=== PATIENT | male | born 1970 | race Hispanic/Latino ===

== ENCOUNTER 2020-05-04 18:29 | Emergency (ER) | payer SELFPAY ==
--- NOTE | 2020-05-04 18:53 | EDPHYS ---
Physician Documentation [facility] Name: Daniel Mancera Age: 50 yrs Sex: Male : 1970 Arrival Date: 05/04/2020 Time: 18:31 Bed 2 Private MD: ED Physician Gerry Alas HPI: 05/04 18:47 This 50 yrs old Male presents to ER via Unassigned with complaints of cpr in [facility] progress. 18:47 Preceding the arrest, the patient collapsed, had chest pain. The arrest occurred at [facility] home. Pre-hospital course: The arrest was witnessed Bystanders at the scene did not perform CPR. The patient has not experienced similar symptoms in the past. Historical: - Allergies: 19:09 No Known Allergies; sv - PMHx: 19:09 None; sv - Family history:: not pertinent. ROS: 18:48 Unable to obtain ROS due to cpr, chest pain x days , taking aspirin. chris Exam: 18:48 Eyes: Pupils: are fixed and dilated. chris 18:48 Neck: External neck: is normal, no jvd. 18:48 Chest/axilla: Inspection: normal. 18:48 Cardiovascular: Rate: actual rate is 0 bpm, JVD: is not appreciated. 18:48 Respiratory: Breath sounds: bronchial sounds, rhonchi, that are mild, with ambubag, Respiratory rate: zero Procedures: 19:30 Intubation: Ventilated with 100% NRB prior to procedure. Intubated orally using # 4 chris Carroll blade with 7.5 mm ETT. was successful on first attempt. Ventilated with Ambu bag. Tube secured Patient tolerated well. Central Line: the site was prepped with Betadine, in sterile fashion, a triple lumen catheter was inserted, in the right in 1 attempts. placement was verified, by blood return, the site was dressed with using sterile technique, the patient tolerated the procedure, well. MDM: 18:47 Patient medically screened. [facility] 18:48 Differential diagnosis: cardiac arrest, respiratory arrest. Data reviewed: vital signs, [facility] nurses notes, EMS record. Data interpreted: front desk monitor: rate is 0 beats/min, Pulse oximetry: on geltube is 100 %. 05/04 18:51 Order name: Finger stick results - FOR PT WITH NO ID [id number] Administered Medications: 18:25 Drug: EPINEPHrine 0.1mg/mL 1:10,000 1 mg {Note: IO to RLE.} Route: IVP; Site: Other; sv 19:18 Follow up: Response: No adverse reaction sv 18:25 Drug: NS 0.9% 1000 ml {Note: IO to RLE.} Route: IV; Rate: 1000 ml; Site: Other; sv 18:44 Follow up: IV Status: Order to discontinue infusion; IV Intake: 700ml sv 18:29 Drug: EPINEPHrine 0.1mg/mL 1:10,000 1 mg {Note: IO to RLE.} Route: IVP; Site: Other; sv 19:17 Follow up: Response: No adverse reaction sv 18:31 Drug: Sodium Bicarbonate 1 amp Route: IVP; Site: right femoral; sv 19:17 Follow up: Response: No adverse reaction sv 18:32 Drug: EPINEPHrine 0.1mg/mL 1:10,000 1 mg Route: IVP; Site: right femoral; sv 19:17 Follow up: Response: No adverse reaction sv 18:35 Drug: EPINEPHrine 0.1mg/mL 1:10,000 1 mg Route: IVP; Site: right femoral; sv 19:17 Follow up: Response: No adverse reaction sv 18:38 Drug: EPINEPHrine 0.1mg/mL 1:10,000 1 mg Route: IVP; Site: right femoral; sv 19:17 Follow up: Response: No adverse reaction sv 18:39 Drug: Sodium Bicarbonate 1 amp Route: IVP; Site: right femoral; sv 19:17 Follow up: Response: No adverse reaction sv 18:40 Drug: EPINEPHrine (PF) 1mg/mL 1:1,000 1 mg Route: IV; Rate: calculated rate; Site: sv right femoral; 18:41 Drug: Calcium Chloride 1 grams Route: IVP; Site: right femoral; sv 19:17 Follow up: Response: No adverse reaction sv 18:43 Drug: EPINEPHrine 0.1mg/mL 1:10,000 1 mg Route: IVP; Site: right femoral; sv 19:17 Follow up: Response: No adverse reaction sv Point of Care Testing: Blood Glucose: 18:37 Blood Glucose: 205 mg/dL; sv Ranges: Critical Glucose Levels:Adult <50 mg/dl or >400 mg/dl <40 mg/dl or >180 mg/dl Disposition: 19:31 Critical Care:. chris Disposition: Patient pronounced on 05/04/20 18:44 by Gerry Alas. Impression: Cardiac arrest, Respiratory arrest, Obesity, unspecified. - Released to [employer]. Critical care time excluding procedures: 19:31 Critical care time: Bedside Care: 30 minutes, Family Intervention: 10 minutes. Total chris time: 40 minutes Signatures: Dispatcher [employer] Bethany Vega RN RN sv Gay, Steven, RN RN sg Anderson, Corey, MD MD chris Corrections: (The following items were deleted from the chart) 21:30 18:53 05/04/2020 18:53 Patient pronounced on 05/04/2020 at 18:44 by Gerry Alas. marva Impression: Cardiac arrest; Respiratory arrest; Obesity, unspecified. Released to [employer]. chris
--- NOTE | 2020-05-04 21:32 | ER ---
Nurse's Notes [facility] Name: Daniel Mancera Age: 50 yrs Sex: Male : 1970 Arrival Date: 05/04/2020 Time: 18:31 Bed 2 Private MD: Diagnosis: Cardiac arrest;Respiratory arrest;Obesity, unspecified Presentation: 05/04 18:24 Chief complaint: EMS states: toned out at 1732 for pt being blue and breathing sv difficulty. [facility] was on scene and had shocked the pt once. EMS arrived at 1746 with CPR being performed by PD. Spouse told EMS that he went down and immediately called 911. He had been c/o CP that radiated to his back for 3 days and had been taking ASA daily since then. EMS gave Epinephrine x 5 en route, pt has been in asystole. Care prior to arrival: Oral intubation, Igel tube CPR performed by EMS and is still in progress. Compressions began prior to arrival. 18:24 Method Of Arrival: EMS: [facility] sv 18:24 Acuity: ERICKA 1 sv 19:25 Coronavirus screen: . Ebola Screen: Unable to complete the Ebola screening sv because: . Onset of symptoms was May 04, 2020. Historical: - Allergies: 19:09 No Known Allergies; sv - PMHx: 19:09 None; sv - Family history:: not pertinent. Screenin:25 Abuse screen: unknown. Nutritional screening: unknown . Tuberculosis screening: unknown sv . Assessment: 18:24 CPR assessment: unresponsive, no respiratory effort, intubated, Ambu ventilation. sv Cardiac rhythm is asystole. General: Behavior is unresponsive. Respiratory: Airway via oral intubation. GI: Abdomen is distended, obese. 18:25 Reassessment: CPR paused, pulse check-asystole. CPR resumed. sv 18:29 Reassessment: CPR paused, pulse check-asystole. CPR resumed. sv 18:30 Reassessment: CPR paused, pulse check-asystole. CPR resumed. sv 18:32 Reassessment: CPR paused, pulse check-asystole. CPR resumed. sv 18:34 Reassessment: CPR paused, pulse check-asystole. CPR resumed. sv 18:36 Reassessment: CPR paused, pulse check-asystole. CPR resumed. sv 18:38 Reassessment: CPR paused, pulse check-asystole. CPR resumed. sv 18:40 Reassessment: CPR paused, pulse check-asystole. CPR resumed. sv 18:42 Reassessment: CPR paused, pulse check-asystole. CPR resumed. sv 18:44 Reassessment: CPR paused, pulse check-asystole. Time of pronounced by Dr Alas.sv 19:05 Reassessment: Dr. Alas spoke to pt's Teresa Mancera and notified of . . aa5 19:19 Reassessment: Pt's personal valuables inventoried by me and MONICA Flores (see pt's aa5 chart), they include: pants and shirts (cut by ER staff), cowboy boots, black watch, and silver colored wedding band. . 19:30 Reassessment: [facility] called by Sandra ANDERSON. sv 19:35 Reassessment: Case #[id number] from [facility]. ED Course: 18:26 Assisted provider with intubation using 7.5 mm ETT via oral route. Set up intubation sv tray. Intubated by Gerry Alas MD Placement verified by CO2 detector w/ + color change, auscultating bilateral breath sounds. 18:29 Assisted provider with central line placement. Set up central line tray. Triple lumen sv line placed in right femoral. Line placed by Gerry Alas MD Placement verified by blood return, Dressed with Tegaderm, Patient tolerated poorly. Before procedure, did Practitioner(s) obtain informed consent? No. Patient \T\ family education about procedure, CLABSI prevention and S/S of infection? No. Time-out/Briefing performed prior to start of procedure? No. Was handwashing/sanitizing done immediately prior to procedure? Yes. Was patient positioned to in a way to prevent air embolism? Yes. Was procedure site sterilized? Yes, with chlorhexidine. Was the site allowed to dry? Yes. Was local anesthetic and/or sedation utilized? No. During the procedure, did the Practitioner(s) maintain a sterile field? Yes. Were unused ports clamped during insertion? Yes. Was a 2nd qualified MD obtained after 3 unsuccessful insertion attempts? Yes. Was blood aspirated from each lumen? Yes. After the procedure, did the Practitioner(s) clean the site and apply a sterile dressing? Yes. 18:31 Patient arrived in ED. em1 18:46 Gerry Alas MD is Attending Physician. chris 18:50 [facility] called to request the BERTA for patient. em1 18:52 Gerry Alas MD is Pronouncing Provider. chris 19:08 Triage completed. sv 19:22 Sandra Chan RN is Primary Nurse. jl7 19:57 Primary Nurse role handed off by Sandra Chan RN [id number] Administered Medications: 18:25 Drug: EPINEPHrine 0.1mg/mL 1:10,000 1 mg {Note: IO to RLE.} Route: IVP; Site: Other; sv 19:18 Follow up: Response: No adverse reaction sv 18:25 Drug: NS 0.9% 1000 ml {Note: IO to RLE.} Route: IV; Rate: 1000 ml; Site: Other; sv 18:44 Follow up: IV Status: Order to discontinue infusion; IV Intake: 700ml sv 18:29 Drug: EPINEPHrine 0.1mg/mL 1:10,000 1 mg {Note: IO to RLE.} Route: IVP; Site: Other; sv 19:17 Follow up: Response: No adverse reaction sv 18:31 Drug: Sodium Bicarbonate 1 amp Route: IVP; Site: right femoral; sv 19:17 Follow up: Response: No adverse reaction sv 18:32 Drug: EPINEPHrine 0.1mg/mL 1:10,000 1 mg Route: IVP; Site: right femoral; sv 19:17 Follow up: Response: No adverse reaction sv 18:35 Drug: EPINEPHrine 0.1mg/mL 1:10,000 1 mg Route: IVP; Site: right femoral; sv 19:17 Follow up: Response: No adverse reaction sv 18:38 Drug: EPINEPHrine 0.1mg/mL 1:10,000 1 mg Route: IVP; Site: right femoral; sv 19:17 Follow up: Response: No adverse reaction sv 18:39 Drug: Sodium Bicarbonate 1 amp Route: IVP; Site: right femoral; sv 19:17 Follow up: Response: No adverse reaction sv 18:40 Drug: EPINEPHrine (PF) 1mg/mL 1:1,000 1 mg Route: IV; Rate: calculated rate; Site: sv right femoral; 18:41 Drug: Calcium Chloride 1 grams Route: IVP; Site: right femoral; sv 19:17 Follow up: Response: No adverse reaction sv 18:43 Drug: EPINEPHrine 0.1mg/mL 1:10,000 1 mg Route: IVP; Site: right femoral; sv 19:17 Follow up: Response: No adverse reaction sv Point of Care Testing: Blood Glucose: 18:37 Blood Glucose: 205 mg/dL; sv Ranges: Intake: 18:44 IV: 700ml; Total: 700ml. sv Outcome: 18:44 Outcome Patient sv 18:44 Patient : Time of 18:44 Pronounced by Gerry Alas MD 18:44 Condition: 21:30 Patient left the ED. sg Signatures: Bethany Greene, RN MONICA Francesco Maradiaga RN MONICA Gerry Alas MD MD cha Martinez, Eric em1 Tami Russo, RN RN aa5 Sandra Chan RN RN jl7 Armando Lizama 2 Corrections: (The following items were deleted from the chart) 19:15 18:32 EPINEPHrine 0.1mg/mL 1:10,000 1 mg IVP in Other sv sv 19:15 18:35 EPINEPHrine 0.1mg/mL 1:10,000 1 mg IVP in Other sv sv 19:15 18:38 EPINEPHrine 0.1mg/mL 1:10,000 1 mg IVP in Other sv sv 19:15 18:40 EPINEPHrine (PF) 1mg/mL 1:1,000 1 mg IV at calculated rate in Other sv sv 19:16 18:43 EPINEPHrine 0.1mg/mL 1:10,000 1 mg IVP in Other sv sv
== END 2020-05-04 21:30 ==
LOC: ER 18:29
PROC: 5A12012 Performance of Cardiac Output, Single, Manual (ICD-10-PCS; principal; 2020-05-04)
PROC: 0BH17EZ Insertion of Endotracheal Airway into Trachea, Via Natural or Artificial Opening (ICD-10-PCS; 2020-05-04)
PROC: 5A1935Z Respiratory Ventilation, Less than 24 Consecutive Hours (ICD-10-PCS; 2020-05-04)
PROC: 06HT33Z Insertion of Infusion Device into Right Foot Vein, Percutaneous Approach (ICD-10-PCS; 2020-05-04)
DX: I46.9 Cardiac arrest, cause unspecified (principal); E66.9 Obesity, unspecified
CPT/HCPCS: 31500; 36415; 82947; 92950; 99285